=== PATIENT | female | born 1960 | race African-American/Black ===

== ENCOUNTER 2018-12-02 12:55 | Emergency (ER) | payer MEDICAID ==
[~2018-12-02] VITALS: Ht 162.6 cm; Wt 86.2 kg
[2018-12-02 13:01] VITALS: BP 156/100
[2018-12-02] MEDS ORDERED: AMLODIPINE BESYL5 MG ORAL (13:06)
--- NOTE | 2018-12-02 13:10 | NUR ---
ED Nurse Note: Patient walked into ED c/o s/p fall, patient reports she slipped and fell, hit her left side of her face on the door. patient is a/o x4 ambulatory denies losing consciousness.
[2018-12-02] MEDS ORDERED: Acetaminophen 500mg (ES) tab ORAL ONE (13:15)
--- NOTE | 2018-12-02 13:15 | Emergency Room Report ---
History of Present Illness General Chief Complaint: Multiple Trauma/Fall Present Illness HPI 58-year-old female with no significant past history here complaining of pain and swelling over the left thigh and cheek after falling his face today. Patient denies any loss of consciousness, dizziness, blurry vision, nausea vomiting. Patient is rating the pain 3 out of 10 upon palpation of the affected area minimal bruising and abrasion in the left are noted. Denies any other injuries, chest pain, shortness of breath, palpitation. Denies all other associated symptoms. Patient is up-to-date with her tetanus shot Allergies: Coded Allergies: LATEX (Verified Allergy, Unknown, 12/02/18) Uncoded Allergies: FISH (Allergy, Unknown, 12/02/18) NUTS (Allergy, Unknown, 12/02/18) PENICILLIN (Allergy, Unknown, 12/02/18) Patient History Past Medical History: see triage record Past Surgical History: unable to obtain Pertinent Family History: none Last Menstrual Period: menopause Now: No Immunizations: UTD Reviewed Nursing Documentation: PMH: Agreed; PSxH: Agreed Nursing Documentation-PMH Hx Hypertension: Yes Hx Asthma: Yes Review of Systems All Other Systems: negative except mentioned in HPI Physical Exam Vital Signs Date Time Temp Pulse Resp B/P (MAP) Pulse Ox O2 Delivery O2 Flow Rate FiO2 12/02/18 13:01 98.2 68 16 156/100 (118) 98 Room Air Sp02 EP Interpretation: reviewed, normal General Appearance: normal inspection, well appearing, no apparent distress Head: normocephalic, atraumatic Eyes: bilateral eye normal inspection, bilateral eye PERRL ENT: normal ENT inspection, hearing grossly normal, normal pharynx, no angioedema, normal voice Neck: full range of motion, supple Respiratory: normal inspection, chest non-tender, lungs clear, normal breath sounds, no wheezing Cardiovascular #1: normal inspection, no gallop, no murmur Gastrointestinal: normal inspection, soft Genitourinary: no CVA tenderness Musculoskeletal: non-tender, swelling - Left periorbital and maxilla Neurologic: normal inspection, alert, oriented x3 Psychiatric: normal inspection, judgement/insight normal, memory normal Skin: no rash, abrasion - Left lower lip Lymphatic: normal inspection, no adenopathy, axilla node tender (R) Medical Decision Making PA Attestation All diagnoses and treatment plans were reviewed and discussed with my supervising physician Dr. Espinal Diagnostic Impression: Primary Impression: Facial contusion ER Course 58-year-old female with no significant past history here complaining of pain and swelling over the left thigh and cheek after falling his face today. Patient denies any loss of consciousness, dizziness, blurry vision, nausea vomiting. Patient is rating the pain 3 out of 10 upon palpation of the affected area minimal bruising and abrasion in the left are noted. Denies any other injuries, chest pain, shortness of breath, palpitation. Denies all other associated symptoms. Patient is up-to-date with her tetanus shot Ddx considered but are not limited to: cerebral hematoma, concussion, skull fracture, head contusion , facial bone fracture versus contusion Vital signs: are WNL, pt. is afebrile H&PE are most consistent with: Facial bone contusion ORDERS: Facial CT no contrast, Tylenol, naproxen ED INTERVENTIONS: Tylenol, wound clean DISCHARGE: At this time pt. is stable for d/c to home. Will provide printed patient care instructions, and any necessary prescriptions. Care plan and follow up instructions have been discussed with the patient prior to discharge. Follow-up with a primary care provider take medication as directed if worsening symptoms return to the emergency emergency room CT/MRI/US Diagnostic Results CT/MRI/US Diagnostic Results : Imaging Test Ordered: Facial CT no contrast Impression No hematoma no fracture Last Vital Signs Date Time Temp Pulse Resp B/P (MAP) Pulse Ox O2 Delivery O2 Flow Rate FiO2 12/02/18 13:01 98.2 68 16 156/100 (118) 98 Room Air Disposition: HOME, SELF-CARE Condition: Stable Scripts Naproxen* (NAPROXEN*) 500 Mg Tablet 500 MG ORAL TWICE A DAY, #30 TAB Prov: Katarina hO 12/02/18 Patient Instructions: Facial or Scalp Contusion, [id number] Katarina Oh Dec 02, 2018 13:15
--- NOTE | 2018-12-02 13:40 | NUR ---
ED Nurse Note: patient taken to CT
--- NOTE | 2018-12-02 13:50 | NUR ---
ED Nurse Note: patient came back from CT
[2018-12-02] MEDS ORDERED: NAPROXEN500 M2 ORAL ×2 (14:23→15:06)
--- NOTE | 2018-12-02 14:56 | Diagnostic Imaging Report ---
Indication: Orbital and maxillofacial trauma and pain Technique: Continuous helical transaxial imaging of the orbits/maxillofacial structures obtained without intravenous contrast administration. Coronal 2-D reformats were also obtained. Study obtained in a Siemens sensation [address] Automatic Exposure Control was utilized. Total Dose length Product (DLP): 539.[address] Dose Index Volume (CTDIvol): 28.19 mGy Comparison: None Findings: There is no evidence of an acute fracture. Paranasal sinuses and mastoids are clear. Soft tissues are unremarkable. IMPRESSION: No acute injury identified The CT scanner at [facility] is accredited by the [employer] and the scans are performed using dose optimization techniques as appropriate to a performed exam including Automatic Exposure control.
[2018-12-02 15:02] VITALS: BP 156/100
--- NOTE | 2018-12-02 15:02 | NUR ---
ER DISCHARGE NOTE: Patient is cleared to be discharged per CARY MARKS, pt is aox4, on room air, with stable vital signs. pt was given dc and prescription instructions, prescription sent electronically as well. pt was able to verbalize understanding, pt id band removed without complications. pt is able to ambulate with steady gait. pt took all belongings.
== END 2018-12-02 15:02 | disposition home or self-care (01) ==
LOC: EMR 13:20
DX: S00.83XA Contusion of other part of head, initial encounter (principal); I10 Essential (primary) hypertension; J45.909 Unspecified asthma, uncomplicated; Z91.040 Latex allergy status; Z88.0 Allergy status to penicillin; Z91.013 Allergy to seafood; Z91.018 Allergy to other foods; W18.30XA Fall on same level, unspecified, initial encounter; Y92.9 Unspecified place or not applicable
CPT/HCPCS: 70486; 99284